=== PATIENT | female | born 1970 | race American Indian/Alaskan Native ===

== ENCOUNTER 2018-02-09 18:41 | Inpatient (IN) | payer MEDICAID ==
[2018-02-09 19:57] LABS: BASO # 0.1 K/uL (0.0-0.2); BASO % 1.1 % (0.0-2.0); EOS # 0.3 K/uL (0.0-0.7); EOS % 4.3 % (0.0-4.0); HEMOGLOBIN 11.7 g/dL (11.0-16.0); LYMPH # 3.3 K/uL (1.0-4.3); LYMPH % 45.3 % (20.0-40.0); MEAN CELL VOLUME 77.5 fL (81.0-99.0); MEAN CORPUSCULAR HEMOGLOBIN 25.7 pg (27.0-31.0); MEAN CORPUSCULAR HGB CONC 33.2 g/dL (33.0-37.0); MEAN PLATELET VOLUME 7.8 fL (7.2-11.7); MONO # 0.7 K/uL (0.0-0.8); MONO % 9.7 % (0.0-10.0); NEUT # 2.9 K/uL (1.8-7.0); NEUT % 39.6 % (50.0-75.0); NRBC % 0.1 % (0.0-2.0); RBC 4.57 Mil/uL (3.80-5.20); RED CELL DISTRIBUTION WIDTH 17.4 % (11.5-14.5); WHITE BLOOD COUNT 7.3 K/uL (4.8-10.8)
[2018-02-09 20:03] LABS: HCG,QUALITATIVE URINE NEGATIVE (NEGATIVE); SQUAMOUS EPITHIAL 3 /hpf (0-5); URINE CLARITY CLEAR (Clear); URINE COLOR YELLOW (YELLOW)
[2018-02-09 20:04] LABS: URINE BILIRUBIN NEGATIVE (NEGATIVE); URINE BLOOD NEGATIVE (NEGATIVE); URINE GLUCOSE (UA) NEGATIVE (Normal); URINE LEUKOCYTE ESTERASE NEGATIVE Leu/uL (Negative); URINE PROTEIN NEGATIVE (NEGATIVE); URINE UROBILINOGEN 0.2 mg/dL (0.2-1.0)
[2018-02-09 20:10] LABS: BARBITURATES, UR NEGATIVE (NEGATIVE); BENZODIAZEPINES, UR NEGATIVE (NEGATIVE); PHENCYCLIDINE, UR NEGATIVE (NEGATIVE)
[2018-02-09 20:17] LABS: ALB/GLOB RATIO 1.2 (1.0-2.1); ALBUMIN 3.9 g/dL (3.5-5.0); ALT/SGPT 32 U/L (9-52); AST/SGOT 39 U/L (14-36); BLOOD UREA NITROGEN 14 mg/dL (7-17); CALCIUM 8.9 mg/dl (8.6-10.4); GFR AFRICAN-AMERICAN > 60; GFR NON-AFRICAN AMERICAN 54
[2018-02-09 20:17] LABS: OPIATES, UR POSITIVE (NEGATIVE)
--- NOTE | 2018-02-09 20:23 | C.PDOC ---
History Of Present Illness 47 year old female presents to the ED as a prescreen for heroin detox. Patient reports a remote history of heroin use, stating she began using heroin again around 7 months ago. Patient admits to insufflating and denies IV drug abuse. Patient spoke with a detox screener, who contacted her and told to her to come to the ER. She states her last intranasal heroin use was at 0400 today. Patient denies vomiting, diarrhea, abdominal cramping, sweats, or any withdrawal symptoms at this time. 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 Patient states symptoms have completely resolved. She was prescribed Xeralta in the past, but discontinued use on her own. Patient also has history of HTN, but does not take any medicine. Chief Complaint (Nursing): Substance Abuse History Per: Patient History/Exam Limitations: no limitations Onset/Duration Of Symptoms: Hrs Current Symptoms Are (Timing): Still Present Suicide/Self Injury Attempted (Context): None Modifying Factor(s): Narcotics (heroin) Involuntary Hold By: None Recent travel outside of the [place]: No Additional History Per: Patient Past Medical History Reviewed: Historical Data, Nursing Documentation, Vital Signs Vital Signs: Last Vital Signs Temp 99.4 F 02/13/18 09:09 Pulse 118 H 02/13/18 09:09 Resp 20 02/13/18 09:09 BP 111/80 02/13/18 09:09 Pulse Ox 100 02/14/18 06:44 - Medical History PMH: No Chronic Diseases Surgical History: No Surg Hx Family History: States: Unknown Family Hx - Social History Hx Alcohol Use: Yes Hx Substance Use: Yes - Immunization History Hx Tetanus Toxoid Vaccination: No Hx Influenza Vaccination: No Hx Pneumococcal Vaccination: No Review Of Systems Constitutional: Negative for: Sweats Gastrointestinal: Negative for: Vomiting, Abdominal Pain, Diarrhea Psych: Positive for: Other (heroin detox ). Negative for: Withdrawal Physical Exam - Physical Exam Appears: Non-toxic, No Acute Distress Skin: Normal Color, Warm, Dry Head: Atraumatic, Normacephalic Eye(s): bilateral: Normal Inspection Oral Mucosa: Moist Neck: Supple Chest: Symmetrical, No Deformity, No Tenderness Cardiovascular: Rhythm Regular, No Murmur Respiratory: Normal Breath Sounds, No Rales, No Rhonchi, No Wheezing Gastrointestinal/Abdominal: Soft, No Tenderness, No Guarding, No Rebound Extremity: Normal ROM, Capillary Refill (less than 2 seconds ), Other (no evidence of IV drug abuse ) Pulses: Left Radial: Normal, Right Radial: Normal Neurological/Psych: Oriented x3, Normal Speech, Normal Cognition, Normal Cranial Nerves (2-12 intact ) ED Course And Treatment - Laboratory Results Result Diagrams: 02/09/18 19:53 02/09/18 19:53 O2 Sat by Pulse Oximetry: 100 (on RA) Pulse Ox Interpretation: Normal Medical Decision Making Medical Decision Making: Impression: heroin dependence Plan: * will send baseline labs and contact street worker for further evaluation Progress: Bloodwork and urinalysis ordered and reviewed. Patient was evaluated by street worker. Disposition - Disposition Disposition: HOSPITALIZED Disposition Time: 06:44 Condition: GOOD - Clinical Impression Clinical Impression: Drug dependence - Scribe Statement The provider has reviewed the documentation as recorded by the Scribe (Stephania Skinner) Provider Attestation: All medical record entries made by the Scribe were at my direction and personally dictated by me. I have reviewed the chart and agree that the record accurately reflects my personal performance of the history, physical exam, medical decision making, and the department course for this patient. I have also personally directed, reviewed, and agree with the discharge instructions and disposition.
[2018-02-10] MEDS: Aluminum Hydroxide/Magnesium Hydroxide Susp (30 mL) PO PRN ×2 (00:14→16:04)
--- NOTE | 2018-02-10 01:58 | PCM.BM ---
<Loli Eugene - Last Filed: 02/10/18 01:57> Treatment Plan Problems - Problems identified on initial assessmt Opiate Dependence Date Initiated: 02/10/18 Time Initiated: 01:58 Assessment reference: NA Status: Active Treatment assets and liabiliti Patient Assests: ADL independent Patient Liabilities: substance abuse - Milieu Protocol Maintain good personal hygiene: daily Encourage regular showers, daily Remind patient to perform daily oral care, daily Assist patient to perform ADL's Maintain personal safety: every shift Educate patient to report safety concerns to staff, every shift Monitor environment for contraband/sharps Medication safety: Monitor for expected outcome, potential side effects: every shift, Assess barriers to learning: every shift, Assess readiness for medication education: every shift <Jason Wolf - Last Filed: 02/10/18 23:25> - Diagnosis (1) Opioid use disorder, severe, dependence Status: Acute Interventions: 02/10/18 23:26 * Assess 7x/week regarding severity of withdrawal * Educate regarding risks, benefits, side effects and alternatives of medications * Use Motivational Interviewing for abstinence * Use CBT for relapse prevention * Medication management for withdrawal symptoms * Encourage medication assisted treatment * <Hellen Crisostomo - Last Filed: 02/12/18 07:51> Family Contact Family involvement: [place]/SO not involved - Goals for Treatment Patient goals for treatment: Complete detox and transition to outpatient counseling. Discharge/Continuing Care - Education Needs Education Needs: Patient Medication, Patient Diagnosis/Disease Process, Patient Coping Skills, Patient Anger Management skills, Patient Placement options, Patient Community resources - Discharge Discharge Criteria: No longer exhibiting s/s of withdrawal, Reduction of target symptoms Discharge to:: Home - Treatment Team Participation Patient/Family/SO Statement: 02/12/18 07:51 "I'm not sure--I guess I'll go to outpatient..." Discussed with Family/SO: No Was Patient/Family/SO present at Treatment Team Meeting: Yes
--- NOTE | 2018-02-10 14:03 | PCM.PSYCH ---
Initial Psychiatric Evaluation - Initial Psychiatric Evaluation Type of Admission: Voluntary Legal Status: Capacity Chief Complaint (in patient's own words): "I need help." History of Present Illness and Precipitating Events: This is a 47 year old female, who lives with her three children , who came to the ED for detox from heroin. Patient states she snorts 10 bags of heroin per day. Patient states she has been using for the past 7 months. Patient relapsed because she was forced to attend [facility] by DYFS and then started using again. Patient states she occasionally smokes cocaine as well. Patient denies any other illicit drug use, including marijuana and PCP. Patient states she previously attended an outpatient clinic for rehab prior to relapsing. Patient denies alcohol consumption. She currently smokes 7 cigarettes per day. Patient denies past psychiatric hospitalizations. Medical history: CVA in January 2017; history of PE Psych history: denies Family history: denies Social history: Patient lives with her three children (ages 17, 12, and 8). She states she works for [employer]. Current Medications: Active Medications Generic Name Dose Route Start Last Admin Trade Name Freq PRN Reason Stop Dose Admin Al Hydrox/Mg Hydrox/Simethicone 30 ml 02/09/18 22:57 02/10/18 00:14 Maalox 30 Ml PO 30 ml TID PRN Administration Indigestion / Heartburn Aspirin 81 mg 02/10/18 10:30 02/10/18 11:16 Aspirin Chewable PO 81 mg DAILY ELYSE Administration Clonidine HCl 0.1 mg 02/09/18 22:57 Catapres PO Q8 PRN COWS Score More or Equal to 5 Dicyclomine HCl 10 mg 02/10/18 00:01 02/10/18 00:14 Bentyl PO 10 mg Q6H PRN Administration Muscle spasm Hydroxyzine HCl 25 mg 02/09/18 22:58 Atarax PO Q4H PRN Anxiety Ibuprofen 600 mg 02/09/18 22:58 Motrin Tab PO Q6H PRN Pain, moderate (4-7) Loperamide HCl 2 mg 02/09/18 22:57 Imodium PO Q8 PRN Diarrhea Methadone HCl 15 mg 02/10/18 10:00 02/10/18 11:16 Methadone PO 02/14/18 09:59 15 mg Q24H ELYSE Administration Taper Ondansetron HCl 4 mg 02/09/18 22:57 Zofran Tab PO Q8 PRN Nausea/Vomiting Trazodone HCl 50 mg 02/09/18 22:58 02/10/18 00:14 Desyrel PO 50 mg HS PRN Administration Insomnia Past Psychiatric History - Past Psychiatric History Previous Treatment History: None History of ETOH/Drug Use: Opioid Use Disorder History of Family Illness: Denies Pertinent Medical Hx (Current Medical&Sleep Prob, Allergies): Allergies Allergy/AdvReac Type Severity Reaction Status Date / Time No Known Allergies Allergy Unverified 02/09/18 19:35 Review of Systems - Review of Systems All systems: reviewed and no additional remarkable complaints except - Psychiatric Psychiatric: absent: Anxiety, Auditory Hallucinations, Depression, Hallucinations, Paranoia, Suicidal Ideation, Visual Hallucinations Mental Status Examination - Personal Presentation Personal Presentation: Looks stated age - Affect Affect: Broad - Motor Activity Motor Activity: Calm - Reliability in Providing Information Reliability in Providing Information: Good - Speech Speech: Organized - Mood Mood: Neutral - Formal Thought Process Formal Thought Process: No Impairment - Obsessions/Compulsions Obsessions: No Compulsions: No - Cognitive Functions Orientation: Person, Place, Situation, Time Sensorium: Alert Attention/Concentration: Attentive Abstract Thinking: [place] Estimate of Intelligence: Average Judgement: Intact, as evidence by: Insight regarding need for hospitalization Memory: Recent intact, as evidence by: Ability to recall events of the day - Risk Risk: Withdrawal - Strength & Assets Inventory Strength & Assets Inventory: Family support DSM 5 DX - DSM 5 DSM 5 Diagnosis: Opioid Use Disorder, severe Opioid Withdrawal Cocaine Use Disorder, moderate - Recommended/Plan of Treatment Treatment Recommendations and Plan of Treatment: -Opioid Use Disorder Start Methadone taper Gabapentin for augmentation As needed medications All risks, benefits and alternatives of the meds discussed, and the pt agreed and understood. Attend groups and activities Supportive therapy and psychoeducation ID for abstinence CBT for relapse prevention Encourage MAT Refer to rehab or IOP, and self-help groups Smoking cessation with ID Nicotine patch if needed 34 min
--- NOTE | 2018-02-11 16:09 | PCM.PYCHPN ---
Psychiatric Progress Note - Psychiatric Progress Note Patient seen today, length of contact: 16 minutes Patient Chief Complaint: "I feel depressed." Problems Identified/Issues Discussed: The pt is seen, chart reviewed, case discussed with staff. Patient was visibly upset and states she feels depressed today. She is unsure why she feels this way. Patient states she did not sleep well last night. Denies SI, HI, AVH/del Support given, CBT and VT used briefly No new wdw symptoms reported, improving slowly and needs more time No SEs from medications, risks discussed. Medication Change: Yes (add lexapro, detox changes daily) Medical Record Reviewed: Yes Mental Status Examination - Cognitive Function Orientation: Person, Place, Situation, Time Memory: Intact Attention: WNL Concentration: WNL Association: WNL Fund of Knowledge: WNL - Mood Mood: Depressed - Affect Affect: Constricted - Speech Speech: Soft - Formal Thought Process Formal Thought Process: No Impairment - Suicidal Ideation Suicidal Ideation: No - Homicidal Ideation Homicidal Ideation: No Goal/Treatment Plan - Goal/Treatment Plan Need for Continued Stay: Discharge may exacerbated symptoms, Severe functional impairment Progress Toward Problem(s) and Goals/Treatment Plan: Add lexapro for depression Continue Methadone taper Increased Trazadon dosage to 100mg HS Added Seroquel 50mg HS for sleep difficulties Continue other medications Support and psychoeducation daily Attend groups and activities daily After care planning by counselor
--- NOTE | 2018-02-12 13:01 | PCM.PYCHPN ---
Psychiatric Progress Note - Psychiatric Progress Note Patient seen today, length of contact: 16 minutes Patient Chief Complaint: "I feel less depressed today" Problems Identified/Issues Discussed: The pt is seen, chart reviewed, case discussed with staff. Support given, CBT and PR used briefly No new symptoms reported, improving slowly and needs more time She is clamer and more composed, she said she gets like this a lot and that her roommate's leave triggered her depression. No SEs from medications, risks discussed. After care discussed Medication Change: Yes (detox changes daily) Medical Record Reviewed: Yes Mental Status Examination - Cognitive Function Orientation: Person, Place, Situation, Time Memory: Intact Attention: WNL Concentration: WNL Association: WNL Fund of Knowledge: WNL - Mood Mood: Depressed - Affect Affect: Constricted - Speech Speech: Soft - Formal Thought Process Formal Thought Process: No Impairment - Suicidal Ideation Suicidal Ideation: No - Homicidal Ideation Homicidal Ideation: No Goal/Treatment Plan - Goal/Treatment Plan Need for Continued Stay: Discharge may exacerbated symptoms, Severe functional impairment Progress Toward Problem(s) and Goals/Treatment Plan: Added lexapro for depression And gabapentin for anxiety Continue Methadone taper Increased Trazadon dosage to 100mg HS Added Seroquel 50mg HS for sleep difficulties Continue other medications Support and psychoeducation daily Attend groups and activities daily After care planning by counselor
--- NOTE | 2018-02-13 08:40 | PCM.PYCHDC ---
Mental Status Examination - Mental Status Examination Orientation: Person, Place, Situation, Time Memory: Intact Mood: Depressed, Anxious Affect: Constricted Speech: Appropriate Attention: WNL Concentration: Poor Fund of Knowledge: WNL Formal Thought Process: No Impairment Suicidal Ideation: No Current Homicidal Ideation?: No Discharge Summary - Discharge Note Reason for Hospitalization: Opioid detox Consultations:: List each consultation separately and include: 1. Reason for request. 2. Findings. 3. Follow-up Summary of Hospital Course include:: 1. Description of specific treatment plan utilized for patients during their course of treatmen. 2. Summarize the time- course for resolution of acute symptoms and/or regressed behaviors. 3. Describe issues identified and worked on during hospitalization. 4. Describe medication utilized. 5. Describe medical problems identified and treated. 6. Reassessment of suicide risk Summary of Hospital Course: On admission: This is a 47 year old female, who lives with her three children , who came to the ED for detox from heroin. Patient states she snorts 10 bags of heroin per day. Patient states she has been using for the past 7 months. Patient relapsed because she was forced to attend [facility] by DY and then started using again. Patient states she occasionally smokes cocaine as well. Patient denies any other illicit drug use, including marijuana and PCP. Patient states she previously attended an outpatient clinic for rehab prior to relapsing. Patient denies alcohol consumption. She currently smokes 7 cigarettes per day. Patient denies past psychiatric hospitalizations. Medical history: CVA in January 2017; history of PE Psych history: denies Family history: denies Social history: Patient lives with her three children (ages 17, 12, and 8). She states she works for [employer]. Will go to [facility] in [place] and also consider MAT. - Final Diagnosis (DSM 5) Condition upon Discharge: GOOD DSM 5: Opioid Use Disorder, severe Opioid Withdrawal Cocaine Use Disorder, moderate Major Depressive d/o -recurrent - severe, w/o psychosis r/o personality d/o r/o bipolar type II Disposition: HOME/ ROUTINE Prescriptions/Medication Reconciliation: Aspirin [Aspirin Chewable] 81 mg PO DAILY #30 chew Escitalopram [Lexapro] 10 mg PO DAILY #30 tab Gabapentin [Neurontin] 300 mg PO TID #90 cap QUEtiapine [SEROquel] 50 mg PO HS #30 tab traZODone [Desyrel] 50 mg PO HS PRN #30 tab PRN Reason: Insomnia
[2018-02-13 09:10] VITALS: BP 111/80; PULSE 118; RESP 20; TEMP 99.4; O2SAT 100
== END 2018-02-13 10:15 | disposition home or self-care (01) | DRG 744 ==
LOC: C.ER 18:41 → C.7D 21:43
PROVIDERS: ADMIT Psychiatry & Neurology Psychiatry; ATTEND Psychiatry & Neurology Psychiatry
PROC: HZ52ZZZ Individual Psychotherapy for Substance Abuse Treatment, Cognitive-Behavioral (ICD-10-PCS; principal; 2018-02-09)
PROC: HZ2ZZZZ Detoxification Services for Substance Abuse Treatment (ICD-10-PCS; 2018-02-09)
PROC: HZ59ZZZ Individual Psychotherapy for Substance Abuse Treatment, Supportive (ICD-10-PCS; 2018-02-09)
PROC: HZ56ZZZ Individual Psychotherapy for Substance Abuse Treatment, Psychoeducation (ICD-10-PCS; 2018-02-09)
PROC: HZ42ZZZ Group Counseling for Substance Abuse Treatment, Cognitive-Behavioral (ICD-10-PCS; 2018-02-09)
PROC: HZ46ZZZ Group Counseling for Substance Abuse Treatment, Psychoeducation (ICD-10-PCS; 2018-02-09)
PROC: GZHZZZZ Group Psychotherapy (ICD-10-PCS; 2018-02-09)
PROC: GZ58ZZZ Individual Psychotherapy, Cognitive-Behavioral (ICD-10-PCS; 2018-02-09)
PROC: GZ56ZZZ Individual Psychotherapy, Supportive (ICD-10-PCS; 2018-02-09)
DX: F11.23 Opioid dependence with withdrawal (principal); F33.2 Major depressive disorder, recurrent severe without psychotic features; F14.10 Cocaine abuse, uncomplicated; F60.9 Personality disorder, unspecified; F17.210 Nicotine dependence, cigarettes, uncomplicated; Z86.73 Personal history of transient ischemic attack (TIA), and cerebral infarction without residual deficits; Z86.711 Personal history of pulmonary embolism